=== PATIENT | male | born 2005 | race Caucasian/White ===

== ENCOUNTER 2024-02-12 23:48 | Emergency (ER) | payer BC, SELFPAY ==
[2024-02-12 23:55] VITALS: BP 139/84
[2024-02-13 02:14] VITALS: BP 124/72
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
== END 2024-02-13 03:44 | disposition home or self-care (01) ==
LOC: EMR 23:48
PROVIDERS: EMERGENCY PHYSICIAN Student in an Organized Health Care Education/Training Program; FAMILY PHYSICIAN Family Medicine
DX: S01.81XA Laceration without foreign body of other part of head, initial encounter (principal); W01.0XXA Fall on same level from slipping, tripping and stumbling without subsequent striking against object, initial encounter; R03.0 Elevated blood-pressure reading, without diagnosis of hypertension; R56.9 Unspecified convulsions
CPT/HCPCS: 99282; 12013